=== PATIENT | male | born 1955 | race Caucasian/White ===

== ENCOUNTER → 2016-09-20 | Outpatient (CLI) | payer OTHER ==
[2016-01-27 12:40] VITALS: BP 140/91
[~2016-09-20] MED LIST: ALPR0.5T PO; ALPR0.5T6 PO; APIX5TAB PO; BUDE10.2 IH; CONTRAST GIVEN MC PRN; DEXA4TAB PO; DRON5CAP PO; HEPARIN PF 500 UNIT/5 ML DISP.SYRIN. IV ONE; HYDR4TAB PO; HYDR4TAB13 PO; IBUP-1060 PO; IOHEXOL 240 MG/ML 50ML VIAL. PO ONE; IOHEXOL 300 MG/ML 75 ML VIAL IV ONE; OMEP20CA9 PO; ONDA8TAB9 PO; OXYC-244 PO; OXYC-250 PO; OXYC40TA21 PO; PROAIR HFA8.5 GM IH; TAPE50TA8 PO
--- NOTE | 2016-09-20 11:44 | RAD ---
EXAM: CT OF THE CHEST, ABDOMEN AND PELVIS WITH INTRAVENOUS CONTRAST. HISTORY: Lung cancer. TECHNIQUE: Computed tomography of the chest, abdomen and pelvis was performed after the intravenous administration of 75 mL Omnipaque 300. COMPARISON: 07/19/2016. FINDINGS: Bone windows reveal no suspicious lesions. There is a 3.9 x 3.7 cm region of scarring and consolidation anteriorly in the left upper lobe consistent with a treated lung mass. There is adjacent soft tissue density that extends into the mediastinal fat and appears to encase or partially encases the left subclavian and internal carotid arteries. This is stable. The degree of consolidation appears slightly increased since the prior study. There are multiple lung nodules consistent with metastases. These have increased in size consistent with progression. Medially in the right middle lobe, a nodule measures 2.5 x 1.8 cm as compared with 1.8 x 1.7 cm previously. It now abuts the mediastinum. 2 masses in the left lower lobe now measure up to 2.1 cm as compared with 1.5 cm previously. There is mild/moderate centrilobular emphysema and pleural parenchymal scarring in the apices. A right-sided port catheter has its tip in the superior cavoatrial junction. There are atherosclerotic calcifications of the coronary arteries. The heart is not enlarged. The left hemidiaphragm is elevated. There is [id number] intra and extrahepatic biliary dilatation. The common duct measures up to 13 mm. There is no clear distal obstructing lesion. This appears stable. Small hypoattenuating foci inferiorly in the right hepatic lobe are stable and likely represent cysts. The spleen, adrenal glands, pancreas and kidneys are unremarkable. The gallbladder is not inflamed. There are no pathologically enlarged lymph nodes. There is no obstruction. There is no significant ascites. IMPRESSION: 1. Pulmonary nodules consistent with metastases have increased in size consistent with progression. 2. No clear interval change in the 3.9 cm region of masslike scarring in the left upper lobe consistent with treated malignancy. Soft tissue density invades the mediastinum, unchanged. 3. Mild to moderate intra and hepatic biliary dilatation without a clear distal obstructing lesion. This is stable. Correlate for cholestasis to assess significance. *One or more of the following individualized dose reduction techniques were utilized for this examination: 1. Automated exposure control. 2. Adjustment of the mA and/or kV according to patient size. 3. Use of iterative reconstruction technique.
== END | disposition home or self-care (01) ==
LOC: CT 08:56
PROVIDERS: ATTEND Internal Medicine Hematology & Oncology
DX: C34.12 Malignant neoplasm of upper lobe, left bronchus or lung (principal); R91.1 Solitary pulmonary nodule; K83.8 Other specified diseases of biliary tract; K83.1 Obstruction of bile duct
CPT/HCPCS: 71260; 74177; Q9966; Q9967

== ENCOUNTER → 2016-11-29 | Outpatient (CLI) | payer OTHER ==
[2016-01-27 12:40] VITALS: BP 140/91
[~2016-11-29] MED LIST changes: -CONTRAST GIVEN MC PRN
--- NOTE | 2016-11-29 10:12 | RAD ---
Indication lung malignancy. Staging. Contrast imaging through the chest abdomen and pelvis was performed. Both IV and oral contrast were administered. 75 cc of Omnipaque 300 was administered intravenously. Note is made of a similar examination 09/20/2016. CT chest: Findings. Underlying emphysematous changes are noted. Dominant nodules in the left lower lobe, seen previously, persist but are slightly smaller compatible with a favorable therapeutic response. Post therapeutic scarring in the left upper lobe is noted appearing similar to the previous exam. A soft tissue mass in the right middle lobe appears unchanged. A new pulmonary finding is not seen. The thoracic aorta appears unremarkable. Some coronary artery calcification is noted. Significant hilar or mediastinal adenopathy is not seen. There is mild diffuse soft tissue swelling. CT abdomen and pelvis: Findings. Mild diffuse soft tissue swelling is noted suggesting a systemic process. There is a small mass, probably reflecting a cyst, in the right lobe of the liver similar to the previous exam. Definite evidence of metastatic disease to the liver is not seen. Intrahepatic bile duct dilatation is noted similar to the previous exam. The gallbladder is grossly normal. The spleen appears unremarkable. No pancreatic abnormality is seen. There are occasional right renal calculi. Adrenal glands appear normal. Acute finding in the abdomen is not seen. No acute finding in the pelvis is seen. Definite evidence of metastatic disease to the abdomen or pelvis is not seen. IMPRESSION: Known pulmonary nodules in the left lower lobe persists but appear slightly smaller. A new finding in the chest is not seen. No acute finding or evidence of metastatic disease in the abdomen or pelvis. Unchanged intrahepatic biliary ductal dilatation. PQRS Compliance Statement: One or more of the following individualized dose reduction techniques were utilized for this examination: 1. Automated exposure control 2. Adjustment of the mA and/or kV according to patient size 3. Use of iterative reconstruction technique
== END | disposition home or self-care (01) ==
LOC: CT 07:50
PROVIDERS: ATTEND Internal Medicine Hematology & Oncology
DX: C34.90 Malignant neoplasm of unspecified part of unspecified bronchus or lung (principal)
CPT/HCPCS: 71260; 74177; Q9966; Q9967

== ENCOUNTER → 2017-02-02 | Outpatient (CLI) | payer OTHER ==
[2016-01-27 12:40] VITALS: BP 140/91
[~2017-02-02] MED LIST changes: +CONTRAST GIVEN MC PRN; -HEPARIN PF 500 UNIT/5 ML DISP.SYRIN. IV ONE; -HYDR4TAB13 PO; +HYDR4TAB45 PO; -IOHEXOL 240 MG/ML 50ML VIAL. PO ONE; -IOHEXOL 300 MG/ML 75 ML VIAL IV ONE; -OXYC-244 PO; -OXYC-250 PO; +OXYC-327 PO; +OXYC-328 PO; +TAPE50TA10 PO; -TAPE50TA8 PO
[2017-02-02] MEDS: IOHEXOL 240 MG/ML 50ML VIAL. PO ONE (10:33)
[2017-02-02] MEDS: IOHEXOL 300 MG/ML 75 ML VIAL IV ONE (10:33)
[2017-02-02] MEDS: HEPARIN PF 500 UNIT/5 ML DISP.SYRIN. IV ONE (10:39)
--- NOTE | 2017-02-02 11:48 | RAD ---
Indication follow-up. Malignant neoplasm in the lung. Imaging through the chest abdomen and pelvis was performed. Both oral and IV contrast were administered. Approximately 75 cc of Omnipaque 300 was administered intravenously. Note is made of a similar imaging [address] chest: Findings Post therapeutic changes are noted in the left upper lobe. Underlying emphysematous changes are noted. There is some pleural-parenchymal scarring in the right lung appearing similar. Known spiculated bilobed mass in the left lower lobe is larger. The lateral and medial components measure approximately 16 and 20 mm respectively. Previous measurements were approximately 14 and 16. Soft tissue mass in the right middle lobe, immediately adjacent to the heart , is larger. It is suspect for a focus of metastatic disease. It now measures 30 x 25 mm whereas previously corresponding measurements were 30 x 16. The thoracic aorta appears unremarkable. Coronary artery calcification is noted. Significant hilar or mediastinal adenopathy is not seen. A new pulmonary nodule is not seen. CT abdomen and pelvis: Findings. There is some soft tissue swelling suggesting a systemic process such as anasarca. This is similar to slightly worse than on the previous exam. Mild intrahepatic biliary ductal dilatation is seen and appears similar. A focal mass in the liver or evidence of metastatic disease to the liver is not seen. The gallbladder appears grossly normal. The spleen appears unremarkable. There are minute right renal calculi. The kidneys are otherwise unremarkable. No adrenal mass is seen. No pancreatic mass is seen. In acute finding in the abdomen or pelvis is not seen. IMPRESSION: Bilobed soft tissue parenchymal mass in the left lower lobe, compatible with neoplastic disease, is larger. Soft tissue mass, likely reflecting metastatic disease, in the right middle lobe adjacent to the heart is also larger. No acute finding in the abdomen or pelvis. No evidence of metastatic disease to the abdomen or pelvis. PQRS Compliance Statement: One or more of the following individualized dose reduction techniques were utilized for this examination: 1. Automated exposure control 2. Adjustment of the mA and/or kV according to patient size 3. Use of iterative reconstruction technique
== END | disposition home or self-care (01) ==
LOC: CT 09:17
PROVIDERS: ATTEND Internal Medicine Hematology & Oncology
DX: C34.12 Malignant neoplasm of upper lobe, left bronchus or lung (principal)
CPT/HCPCS: 71260; 74177; Q9966; Q9967

== ENCOUNTER → 2017-02-13 | Outpatient (CLI) | payer OTHER ==
[2016-01-27 12:40] VITALS: BP 140/91
[~2017-02-13] MED LIST changes: -CONTRAST GIVEN MC PRN
--- NOTE | 2017-02-13 09:48 | RAD ---
Indication follow-up. History of lung malignancy. PA and lateral views of the chest were obtained. Comparison is made to a plain film study 09/27/2015. Note is made of several CT examinations of the chest the most recent being 02/02/2017. Bilobed soft tissue mass referenced in the CT examination of the chest, in the left lung, is seen. Soft tissue mass adjacent to the right heart, in the right lung is also seen. Post therapeutic changes in the left upper lobe are noted. A right Port-A-Cath is noted. An unexpected finding, given the recent CT examination, is not seen. IMPRESSION: Soft tissue masses in both lungs, referenced on recent CT are reproduced. An acute finding or unexpected finding, given the recent CT examination, is not seen
== END | disposition home or self-care (01) ==
LOC: NM 07:29
PROVIDERS: ATTEND Internal Medicine Pulmonary Disease
DX: R07.9 Chest pain, unspecified (principal); Z85.118 Personal history of other malignant neoplasm of bronchus and lung
CPT/HCPCS: 71020

== ENCOUNTER → 2017-05-04 | Outpatient (CLI) | payer OTHER ==
[2016-01-27 12:40] VITALS: BP 140/91
[~2017-05-04] MED LIST changes: +HEPARIN PF 500 UNIT/5 ML DISP.SYRIN. IV ONE; +IOHEXOL 240 MG/ML 50ML VIAL. PO ONE; +IOHEXOL 300 MG/ML 75 ML VIAL IV ONE
--- NOTE | 2017-05-04 10:11 | RAD ---
CT chest, abdomen and pelvis Indication: Follow-up of left upper lobe neoplasm. History of chemotherapy. Technique: CT chest, abdomen and pelvis with 75 mL of Omnipaque 300 with multiplanar reformats. Comparison: Previous study from 02/02/2017 Findings: CT chest: Neck base is clear. No axillary, mediastinal adenopathy. Right hilar lymph node measuring 2.3 x 1.9 cm, previously 2.6 x 1.5 cm. No left hilar adenopathy. Nodular pleural thickening is noted along the anterior medial aspect of the left upper lobe extending to the mediastinal surface, stable and may reflect post therapeutic changes. Interval increase in the size of left lower lobe mass measuring 2.6 x 2.4 x 3.4 cm, previously 2.0 x 1.7 x 2.4 cm. The mass extends inferiorly and contacts the left diaphragm which is elevated. Interval increase in the size of right middle lobe lobulated mass measuring 6.6 x 3.3 x 5.1 cm, previously 3.6 x 2.7 x 3.7 cm. The mass extends to the right hilum. There is new pulmonary nodule superior to this mass in the right middle lobe measuring 1.3 x 1.8 x 1.2 cm.New cavitary changes are seen in the left lung apex. Diffuse emphysematous changes. Heart is normal in size. No pericardial or pleural effusion. Coronary artery calcifications noted. Left chest wall Chemo-Port is seen with its tip in the SVC atrial junction. No suspicious bony lesions in the chest. CT abdomen/pelvis: Stable multiple attenuating lesions are seen in the liver dating back to at least 2016. There is stable diffuse intrahepatic and extra hepatic biliary duct dilation. No radiopaque gallstones. Spleen is within normal limits. Pancreas within normal limits. Adrenal glands show no nodularity. Punctate nonobstructing right renal stones. No suspicious renal lesion. No bulky retroperitoneal or pelvic adenopathy. Please note that evaluation of the abdomen is limited due to decreased intra-abdominal fat. No bowel obstruction. Show no focal lesion. Moderate skull disease of the infrarenal aorta and bilateral iliac vessels. No suspicious bony lesions. Mild multilevel degenerative changes in the spine. Impression: 1. Interval increase in the size of left lower lobe pulmonary mass now extending inferiorly to the diaphragmatic surface. 2. Interval increase in the size of right middle lobe mass extending to right hilum. New pulmonary nodule in the right middle lobe. 3. Relatively stable right hilar lymph node. 4. Thickening of the anteromedial pleura in the left upper lobe, stable. 5. 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 PQRS Compliance Statement: One or more of the following individualized dose reduction techniques were utilized for this examination: 1. Automated exposure control 2. Adjustment of the mA and/or kV according to patient size 3. Use of iterative reconstruction technique
== END | disposition home or self-care (01) ==
LOC: CT 07:59
PROVIDERS: ATTEND Internal Medicine Hematology & Oncology
DX: C34.12 Malignant neoplasm of upper lobe, left bronchus or lung (principal); I10 Essential (primary) hypertension; Z79.01 Long term (current) use of anticoagulants; Z92.21 Personal history of antineoplastic chemotherapy; Z87.891 Personal history of nicotine dependence
CPT/HCPCS: 71260; 74177; Q9966; Q9967

== ENCOUNTER 2017-05-17 06:46 | Emergency (ER) | payer OTHER ==
[~2017-05-17] VITALS: Ht 177.8 cm; Wt 61.7 kg
[~2017-05-17 06:46] MED LIST changes: -HEPARIN PF 500 UNIT/5 ML DISP.SYRIN. IV ONE; -IOHEXOL 240 MG/ML 50ML VIAL. PO ONE; -IOHEXOL 300 MG/ML 75 ML VIAL IV ONE
--- NOTE | 2017-05-17 08:02 | RAD ---
EXAM: CT head without contrast. HISTORY: Fall with head injury. TECHNIQUE: Computed tomography of the head was performed without intravenous contrast. COMPARISON: 09/25/2015. FINDINGS: There is no intracranial hemorrhage. Stratton-white differentiation is preserved. The ventricles are normal in size and position. There is moderate mucosal thickening in both maxillary sinuses. Changes of bilateral maxillary decompressive surgery are noted. There is also mucosal thickening in the frontal sinus. The orbits are unremarkable. The temporal bones are unremarkable. The calvarium reveals no suspicious lesions. IMPRESSION: 1. No acute intracranial findings. *One or more of the following individualized dose reduction techniques were utilized for this examination: 1. Automated exposure control. 2. Adjustment of the mA and/or kV according to patient size. 3. Use of iterative reconstruction technique.
--- NOTE | 2017-05-17 08:23 | PHYS DOC ---
Past Medical History Past Medical History: Cancer Additional Past Medical Histor: lung ca Alcohol Use: None Drug Use: None Adult General Chief Complaint Chief Complaint: ALTERED MENTAL STATUS HPI HPI Patient is a 61 year old male who presents with contusions to his head. Patient has end-stage lung disease and recently started on hospice. Patient frequently will follow asleep while standing and believes this is what happened. He was found on the ground. She states he sleeps very heavy when he sleeps. He is not currently taking blood thinners. He has abrasions to the top of his head with contusion on the side and patient was brought here for a CT of his head. No other interventions are requested this time. Patient has had a sinus infection recently, is supposed to be on oxygen at home but patient refuses to wear it. declines x-ray of his chest or blood work at this time Review of Systems Review of Systems Per history of present illness, sinus drainage, no other review of systems offered Current Medications Current Medications Current Medications Medications (Trade) Dose Ordered Sig/Sobia Start Time Stop Time Status Last Admin Dose Admin Albuterol/ Ipratropium (Duoneb) 3 ml 1X ONCE 05/17/17 08:45 05/17/17 08:46 DC 05/17/17 11:55 3 ML Allergies Allergies Allergies Coded Allergies Type Severity Reaction Last Updated Verified No Known Allergies Allergy Unknown 09/22/15 Yes Physical Exam Physical Exam Constitutional: Well developed, well nourished, appears sleepy, will answer questions to voice but won't open his eyes tachypnea HENT: Normocephalic, abrasion to the top of his head, left temporal area Eyes: PERRLA,no discharge. [] Neck: Normal range of motion, no tenderness Cardiovascular:Heart rate regular with regular rhythm Lungs & Thorax: Diffuse rhonchi, poor air movement Abdomen: no tenderness Skin: Warm, dry Back: No tenderness, no CVA tenderness. [] Extremities: chronic R arm edema with two skin tears on distal forearm, one distal humerus Neurologic: lethargic, left facial droop (chronic per ), not participating in exam but will squeeze hands Current Patient Data Vital Signs Vital Signs Date Time Temp Pulse Resp B/P (MAP) Pulse Ox O2 Delivery O2 Flow Rate FiO2 05/17/17 12:42 82 12 94 05/17/17 11:57 Nasal Cannula 1.0 05/17/17 07:00 98.2 166/99 (121) 98.2 EKG EKG [] Radiology/Procedures Radiology/Procedures ct head: IMPRESSION: 1. No acute intracranial findings. [] Course & Med Decision Making Course & Med Decision Making Pertinent Labs and Imaging studies reviewed. (See chart for details) arrived denies talked with her regarding additional evaluation and treatment. She declines at this time and only wants a CT of the head performed. I discussed with the where the patient would best go from the ER. She does not believe that the patient could go back to his home where he was previously being treated. The hospice nurse came to the ER to evaluate and arrange for the patient to be discharged to hospice house. A DNR was signed by the and I cosigned. Dragon Disclaimer Dragon Disclaimer This electronic medical record was generated, in whole or in part, using a voice recognition dictation system. Departure Departure Impression: Primary Impression: Lung cancer Additional Impression: Fall Disposition: 05 TRANSFER OTHER Condition: GRAVE Referrals: BRITTANY SANTOS MD (PCP) Problem Qualifiers VAUGHN SPRING MD May 17, 2017 08:23
[2017-05-17] MEDS ORDERED: IPRATRPIUM/ALBUTEROL 0.5/2.5MG 3 ML NEBU. NEB ONE (08:45)
[2017-05-17 12:42] VITALS: BP 153/89
== END 2017-05-17 12:52 | disposition home or self-care (01) ==
LOC: ER 06:46
DX: C34.90 Malignant neoplasm of unspecified part of unspecified bronchus or lung (principal); S00.93XA Contusion of unspecified part of head, initial encounter
CPT/HCPCS: 70450; 94640; 99284; J7620